=== PATIENT | male | born 1960 | race Two or more races ===

== ENCOUNTER → 2017-09-30 | Outpatient (CLI) | payer MEDICAID | END | disposition home or self-care (01) | LOC: Rad HDHVI 08:05 | PROVIDERS: ATTEND Internal Medicine Cardiovascular Disease | DX: I51.7 Cardiomegaly (principal); I10 Essential (primary) hypertension | CPT/HCPCS: 93306 ==

== ENCOUNTER → 2017-10-20 | Outpatient (CLI) | payer MEDICAID ==
[~2017-10-20] VITALS: Ht 165.1 cm; Wt 70.3 kg
== END | disposition home or self-care (01) ==
LOC: Rad HDHVI 07:59
PROVIDERS: ATTEND Internal Medicine
DX: I10 Essential (primary) hypertension (principal); E11.9 Type 2 diabetes mellitus without complications; E78.5 Hyperlipidemia, unspecified; Z82.49 Family history of ischemic heart disease and other diseases of the circulatory system
CPT/HCPCS: 78452; 93017; 96374; A9500

== ENCOUNTER 2023-07-20 10:55 | Emergency (ER) | payer MEDICAID ==
[~2023-07-20] VITALS: Ht 165.1 cm; Wt 74.3 kg
[2023-07-20] MEDS ORDERED: ACCU-CHEK COMFORT CURVE STRIP VI ONE (11:45)
[2023-07-20 12:10] LABS: Basophils # (auto) 0 10 ^3/uL (0-0.2); Basophils % (auto) 0.3 % (0.0-2.0); Eosinophils # (auto) 0 10 ^3/uL (0-0.8); Eosinophils % (auto) 0.8 % (0.0-7.0); Hematocrit 43.2 % (41.0-53.0); Hemoglobin 14.7 g/dL (13.5-17.5); Lymphocytes # (auto) 1.3 10 ^3/uL (0.4-5.4); Lymphocytes % (auto) 21.8 % (10.0-50.0); Mean Corpuscular Volume 94.2 fL (80.0-100.0); Monocytes # (auto) 0.4 10 ^3/uL (0-1.3); Monocytes % (auto) 6.1 % (0.0-12.0); Neutrophils # (auto) 4.1 10 ^3/uL (1.6-8.6); Nucleated Red Blood Cells % 0.1 %; Red Blood Cells 4.58 10^6/uL (4.5-5.90); Red Cell Distribution Width 12.5 % (11.8-14.3); White Blood Cell 5.7 10^3/uL (4.4-10.8)
[2023-07-20] MEDS ORDERED: SODIUM CHLORIDE 0.9% 1,000 ML IV ONE ×2 (12:15→13:45)
[2023-07-20 12:16] VITALS: PULSE 74; RESP 19; O2SAT 96
[2023-07-20 12:28] LABS: Alanine Aminotransferase 65 U/L (7-40); Albumin 4.9 g/dL (3.2-4.8); Alkaline Phosphatase 56 U/L (46-116); Anion Gap 8 (5-15); Aspartate Aminotransferase 33 U/L (13-40); BUN/Creatinine Ratio 13.6 (10.0-20.0); Bilirubin, Total 0.9 mg/dL (0.2-1.0); Blood Urea Nitrogen 14 mg/dL (9-23); Carbon Dioxide 30 mmol/L (20-30); Chloride 98 mmol/L (98-107); Glucose 345 mg/dL (74-106); Potassium 4.7 mmol/L (3.5-5.1); Sodium 136 mmol/L (136-145); Total Protein 7.2 g/dL (5.7-8.2)
[2023-07-20 12:59] LABS: Urine Bacteria NONE SEEN /hpf (None Seen); Urine Blood Negative /uL (Negative); Urine Clarity Clear (Clear); Urine Protein, UAD 2+ (Negative); Urine Specific Gravity 1.027 (1.001-1.035); Urine Urobilinogen Normal (Negative); Urine WBC <1 /hpf (0 - 3); Urine pH 6.5 (5.0-8.0)
[2023-07-20 13:03] LABS: Urine Color Straw (Yellow)
[2023-07-20] MEDS ORDERED: SODIUM CHLORIDE 0.9% 1,000 ML IVB ONE (13:30)
[2023-07-20 13:49] LABS: Magnesium 1.2 mg/dL (1.6-2.6)
[2023-07-20] MEDS ORDERED: MECLIZINE HCL 25 MG TAB PO ONE (15:15)
[2023-07-20] MEDS: MAGNESIUM SULFATE 1GM/100ML 100 ML IV SCH ×2 (15:52→17:01)
[2023-07-20] MEDS ORDERED: ONDANSETRON HCL 4 MG/2 ML VIAL IV ONE (16:00)
[2023-07-20] MEDS ORDERED: ATEN-60 PO (17:39)
[2023-07-20] MEDS ORDERED: MECL1TAB42 PO (17:39)
[2023-07-20 17:42] VITALS: BP 159/80; PULSE 92; RESP 18; TEMP 97.3; O2SAT 96
== END 2023-07-20 17:43 | disposition home or self-care (01) ==
LOC: ER 10:55
DX: H81.13 Benign paroxysmal vertigo, bilateral (principal); E11.65 Type 2 diabetes mellitus with hyperglycemia; E83.42 Hypomagnesemia; I10 Essential (primary) hypertension; R07.89 Other chest pain
CPT/HCPCS: 36415; 70450; 71046; 80053; 81001; 82962; 83690; 83735; 84484; 85025; 93005; 96361; 96365; 96366; 96375; 99285; J2405; J3475; J7030; J8597

== ENCOUNTER → 2023-09-22 | Outpatient (CLI) | payer MEDICAID ==
[~2023-09-22] MED LIST: ATEN-60 PO; MECL1TAB42 PO
== END | disposition home or self-care (01) ==
LOC: Rad HDHVI 08:04
PROVIDERS: ATTEND Internal Medicine Cardiovascular Disease
DX: I10 Essential (primary) hypertension (principal); R07.89 Other chest pain
CPT/HCPCS: 93306

== ENCOUNTER → 2023-09-26 | Outpatient (CLI) | payer MEDICAID ==
[~2023-09-26] VITALS: Ht 165.1 cm; Wt 64.4 kg
== END | disposition home or self-care (01) ==
LOC: Rad HDHVI 08:04
PROVIDERS: ATTEND Internal Medicine Cardiovascular Disease
DX: I10 Essential (primary) hypertension (principal); E11.9 Type 2 diabetes mellitus without complications; E78.5 Hyperlipidemia, unspecified; Z82.49 Family history of ischemic heart disease and other diseases of the circulatory system
CPT/HCPCS: 78452; 93017; 96374; A9500

== ENCOUNTER → 2024-01-04 | Outpatient (CLI) | payer MEDICAID | END | disposition home or self-care (01) | LOC: Rad HDHVI 16:14 | PROVIDERS: ATTEND Internal Medicine Cardiovascular Disease | DX: I10 Essential (primary) hypertension (principal); E78.5 Hyperlipidemia, unspecified; E11.9 Type 2 diabetes mellitus without complications | CPT/HCPCS: 93880 ==